=== PATIENT | female | born 1985 | race Caucasian/White ===

== ENCOUNTER 2021-10-21 13:59 | Observation (INO) | payer OTHER ==
[2021-10-21] MEDS ORDERED: MORPHINE SULFATE 4 MG/ML SYRINGE IVP STA (16:56)
[2021-10-21] MEDS ORDERED: SODIUM CHLORIDE 0.9% 1,000 ML IV STA ×2 (16:56→18:55)
[2021-10-21 18:02] LABS: Appearance,Urine Clear (Clear); Bilirubin,Urine Negative (Negative); Blood,Urine Negative (Negative); Color,Urine Light Yellow; Glucose,Urine (UA) Negative (Negative); Ketones,Urine Trace (Negative); Leukocyte Esterase,Urine Negative (Negative); Nitrite,Urine Negative (Negative); Protein,Urine Negative (Negative); Specific Gravity,Urine 1.007 (1.001-1.035); Urobilinogen,Urine <2.0 mg/dL (<2.0)
[2021-10-21 18:03] LABS: Basophils # (A) 0.1 k/uL (0-0.2); Basophils % (A) 0 %; Eosinophils # (A) 0.2 k/uL (0-0.7); Eosinophils % (A) 1 %; HCT 44.4 % (34.0-46.0); HGB 14.7 gm/dL (11.4-16.0); Lymphocytes # (A) 1.6 k/uL (1.0-4.8); Lymphocytes % (A) 9 %; MCH 31.8 pg (25.0-35.0); MCHC 33.1 g/dL (31.0-37.0); Mean Platelet Volume 8.7; Monocytes # (A) 0.8 k/uL (0-1.0); Monocytes % (A) 4 %; Neutrophils % (A) 85 %; Platelet Count 178 k/uL (150-450); RBC 4.62 m/uL (3.80-5.40); RDW 12.8 % (11.5-15.5); WBC 18.8 k/uL (3.8-10.6)
[2021-10-21] MEDS: ONDANSETRON 4 MG/2 ML VIAL IVP STA (18:08)
[2021-10-21 18:10] LABS: HCG,Qualitative Serum Not Detected
[2021-10-21 18:11] LABS: ALT 27 U/L (4-34); AST 17 U/L (14-36); African American GFR (CKD) >90 (>60 ml/min/1.73 sqM); Albumin 4.9 g/dL (3.5-5.0); Alkaline Phosphatase 87 U/L (38-126); Amylase 44 U/L (30-110); Anion Gap 12 mmol/L; Blood Urea Nitrogen 9 mg/dL (7-17); Calcium 9.6 mg/dL (8.4-10.2); Carbon Dioxide 23 mmol/L (22-30); Chloride 102 mmol/L (98-107); Glucose 196 mg/dL (74-99); Lipase 68 U/L (23-300); Non-African American GFR(CKD) >90 (>60 ml/min/1.73 sqM); Potassium 3.9 mmol/L (3.5-5.1); Sodium 137 mmol/L (137-145); Total Bilirubin 0.9 mg/dL (0.2-1.3); Total Protein 7.8 g/dL (6.3-8.2)
[2021-10-21 18:14] LABS: INR 0.9 (<1.2); Partial Thromboplastin Time 22.6 sec (22.0-30.0); Prothrombin Time 9.9 sec (9.0-12.0)
--- NOTE | 2021-10-21 18:42 | CT ---
EXAMINATION TYPE: CT abdomen pelvis w con DATE OF EXAM: 10/21/2021 COMPARISON: None available HISTORY: epigastric pain CT DLP: 1792.1 mGycm. Automated Exposure Control for Dose Reduction was Utilized. TECHNIQUE: Multiple contiguous axial CT images of the abdomen and pelvis were obtained from the lung bases through the pubic symphysis with IV Contrast, patient injected with 100 mL of Isovue 300. 2-D s agittal and coronal reformatted images were obtained. FINDINGS: Lung bases are clear. Liver, spleen, pancreas, and bilateral adrenal glands have an unremarkable enhanced appearance. Gallbladder is present. No definite intrahepatic or extrahepatic biliary ductal dilatation. Kidneys are symmetric in size without hydronephrosis. No renal or ureteral calculi. Urinary bladder a ppears unremarkable. Uterus is present. No adnexal masses. Visualized bowel is of normal caliber without evidence of obstruction. Appendix is moderately dilated with appendiceal wall thickening and periappendiceal inflammation, as well as intraluminal appendico liths, the largest measuring up to 7 mm. No free air. Abdominal aorta is of normal caliber. No intra-abdominal or retroperitoneal lymphadenopathy. Subcutan eous soft tissues appear unremarkable. Osseous structures appear intact. Mild multilevel degenerative changes most pronounced at the level of L4-5. IMPRESSION: Findings consistent with moderate acute appendicitis with intraluminal appendicoliths. No associated free air or abscess formation.
[2021-10-21] MEDS ORDERED: MORPHINE SULFATE 4 MG/ML SYRINGE IVP PRN (18:55)
[2021-10-21] MEDS ORDERED: ONDANSETRON 4 MG/2 ML VIAL IVP PRN (18:56)
[2021-10-21] MEDS ORDERED: NALOXONE 0.4 MG/ML 1 ML VIAL IV PRN (19:00)
--- NOTE | 2021-10-21 19:00 | ED ---
General Adult HPI - General Chief complaint: Abdominal Pain Stated complaint: Abd pain Time Seen by Provider: 10/21/21 16:43 Source: patient, RN notes reviewed, old records reviewed Mode of arrival: ambulatory Limitations: no limitations - History of Present Illness Initial comments: Patient is a 36-year-old female with past medical history remarkable for wof-cmpsoim-kngogqgsu type 2 diabetes who presents emergency Department complaining of abdominal pain for the last 2 days. Endorses right lower quadrant abdominal pain. Describes it as sharp, squishing sensation. Endorses some mild nausea with it. Denies any change in bowel movements. Denies any vaginal discharge or bleeding. Denies being . Denies any dysuria or hematuria. Denies fevers or sick contacts. Denies any history of abdominal surgeries. Presents for further evaluation of a concern for her abdominal pain. States her sugars are typically in the 100s. His no other acute complaints at this time. - Related Data Home Medications Medication Instructions Recorded Confirmed Glipizide (Unknown Dose) 1 tab PO DIRECTED 10/21/21 10/21/21 Metformin (Unknown Dose) 1 tab PO W/LUNCH 10/21/21 10/21/21 Pregabalin [Lyrica] 150 mg PO BID 10/21/21 10/21/21 Njc-Zwyz-Qkfci Acid 1 cap PO DAILY 10/21/21 10/21/21 [-U Capsule (formulary)] Allergies Allergy/AdvReac Type Severity Reaction Status Date / Time No Known Allergies Allergy Verified 10/21/21 19:00 Review of Systems ROS Statement: Those systems with pertinent positive or pertinent negative responses have been documented in the HPI. Review of Systems: CONST: Denies fever EYES: Denies blurry vision ENT: Denies nasal congestion C/V: Denies Chest pain RESP: Denies shortness of breath GI: Endorses abdominal pain : Denies dysuria SKIN: Denies rash. MSK: Denies joint pain. NEURO: Denies headache ROS Other: All systems not noted in ROS Statement are negative. Past Medical History Past Medical History: Diabetes Mellitus, Hyperlipidemia History of Any Multi-Drug Resistant Organisms: None Reported Past Surgical History: No Surgical Hx Reported Past Psychological History: No Psychological Hx Reported Smoking Status: Current every day smoker Past Alcohol Use History: Rare Past Drug Use History: None Reported General Exam - General Exam Comments Initial Comments: General: Appears in mild distress secondary to abdominal discomfort. HEAD: Normal with no signs of head trauma. EYES: PERRLA, EOMI, conjunctiva normal, no discharge. ENT: Hearing grossly intact, normal oropharynx. RESPIRATORY: Clear breath sounds bilaterally. No wheezes, rales, or rhonchi. C/V: Regular rate and rhythm. S1 and S2 auscultated, no edema, peripheral pulses 2+ and intact throughout ABD: Abdomen soft, nondistended. McBurney's point is positive. Tenderness to palpation in the right lower quadrant. Some mild right flank tenderness to palpation as well. No guarding. No. She no signs per no rebound tenderness. EXT: Normal range of motion, no obvious deformity SKIN: No rashes or lesions observed on exposed skin. NEURO: Alert and oriented 4. Limitations: no limitations Course Vital Signs 10/21/21 15:59 Temperature 98.7 F Pulse Rate 89 Respiratory 16 Rate Blood Pressure 120/75 O2 Sat by Pulse 98 Oximetry Medical Decision Making - Medical Decision Making Based on the patient's presentation and physical exam, I am concerned for acute intra-abdominal process for the patient. Cannot rule out acute appendicitis. Also on the differential, a as well as nephrolithiasis. We'll obtain abdominal laboratory studies, as well as CT and pelvis and percent of the kidneys and bladder. She was in agreement this plan. We'll symptomatically be treated with a 1 L fluid bolus as well as antiemetics and analgesia. Laboratory studies are remarkable for leukocytosis of 18.8. Patient's primary care blood sugar is slightly elevated to 196. Patient is not . The remainder of the labs are unremarkable and within normal limits. Renal ultrasound shows no signs of hydronephrosis or nephrolithiasis. CT revealed acute appendicitis, simple. No signs of free air or abscess formation. There is an intraluminal appendicolith. I discussed the findings with the patient. I believe she should be admitted and placed on IV antibiotics. Likely will require surgery. She was in agreement this plan. She'll be continued on maintenance IV fluids as well as as needed pain medications and antiemetics. I spoke with the surgeon on-call, Dr. Bhardwaj who accepted the patient. She requested that the patient be started on Zosyn has her choice antibiotics, which is done. Patient will be made nothing by mouth after midnight. I ordered a type and screen for tomorrow. At Dr. Bhardwaj's request, we will obtain a consult to medicine team, Dr. Pool who is covering for the patient's PCP Dr. Lux to manage her diabetes. I spoke with him over the phone and he was in agreement this plan. - Lab Data Result diagrams: 10/21/21 17:24 10/21/21 17:24 Lab Results 10/21/21 10/21/21 10/21/21 Range/Units 17:24 17:24 17:24 WBC 18.8 H (3.8-10.6) k/uL RBC 4.62 (3.80-5.40) m/uL Hgb 14.7 (11.4-16.0) gm/dL Hct 44.4 (34.0-46.0) % MCV 96.0 (80.0-100.0) fL MCH 31.8 (25.0-35.0) pg MCHC 33.1 (31.0-37.0) g/dL RDW 12.8 (11.5-15.5) % Plt Count 178 (150-450) k/uL MPV 8.7 Neutrophils % 85 % Lymphocytes % 9 % Monocytes % 4 % Eosinophils % 1 % Basophils % 0 % Neutrophils # 16.0 H (1.3-7.7) k/uL Lymphocytes # 1.6 (1.0-4.8) k/uL Monocytes # 0.8 (0-1.0) k/uL Eosinophils # 0.2 (0-0.7) k/uL Basophils # 0.1 (0-0.2) k/uL PT 9.9 (9.0-12.0) sec INR 0.9 (<1.2) APTT 22.6 (22.0-30.0) sec Sodium (137-145) mmol/L Potassium (3.5-5.1) mmol/L Chloride (98-107) mmol/L Carbon Dioxide (22-30) mmol/L Anion Gap mmol/L BUN (7-17) mg/dL Creatinine (0.52-1.04) mg/dL Est GFR (CKD-EPI)AfAm (>60 ml/min/1.73 sqM) Est GFR (CKD-EPI)NonAf (>60 ml/min/1.73 sqM) Glucose (74-99) mg/dL Calcium (8.4-10.2) mg/dL Total Bilirubin (0.2-1.3) mg/dL AST (14-36) U/L ALT (4-34) U/L Alkaline Phosphatase (38-126) U/L Total Protein (6.3-8.2) g/dL Albumin (3.5-5.0) g/dL Amylase (30-110) U/L Lipase (23-300) U/L HCG, Qual Urine Color Light Yellow Urine Appearance Clear (Clear) Urine pH 5.0 (5.0-8.0) Ur Specific [place] 1.007 (1.001-1.035) Urine Protein Negative (Negative) Urine Glucose (UA) Negative (Negative) Urine Ketones Trace H (Negative) Urine Blood Negative (Negative) Urine Nitrite Negative (Negative) Urine Bilirubin Negative (Negative) Urine Urobilinogen <2.0 (<2.0) mg/dL Ur Leukocyte Esterase Negative (Negative) 10/21/21 Range/Units 17:24 WBC (3.8-10.6) k/uL RBC (3.80-5.40) m/uL Hgb (11.4-16.0) gm/dL Hct (34.0-46.0) % MCV (80.0-100.0) fL MCH (25.0-35.0) pg MCHC (31.0-37.0) g/dL RDW (11.5-15.5) % Plt Count (150-450) k/uL MPV Neutrophils % % Lymphocytes % % Monocytes % % Eosinophils % % Basophils % % Neutrophils # (1.3-7.7) k/uL Lymphocytes # (1.0-4.8) k/uL Monocytes # (0-1.0) k/uL Eosinophils # (0-0.7) k/uL Basophils # (0-0.2) k/uL PT (9.0-12.0) sec INR (<1.2) APTT (22.0-30.0) sec Sodium 137 (137-145) mmol/L Potassium 3.9 (3.5-5.1) mmol/L Chloride 102 (98-107) mmol/L Carbon Dioxide 23 (22-30) mmol/L Anion Gap 12 mmol/L BUN 9 (7-17) mg/dL Creatinine 0.53 (0.52-1.04) mg/dL Est GFR (CKD-EPI)AfAm >90 (>60 ml/min/1.73 sqM) Est GFR (CKD-EPI)NonAf >90 (>60 ml/min/1.73 sqM) Glucose 196 H (74-99) mg/dL Calcium 9.6 (8.4-10.2) mg/dL Total Bilirubin 0.9 (0.2-1.3) mg/dL AST 17 (14-36) U/L ALT 27 (4-34) U/L Alkaline Phosphatase 87 (38-126) U/L Total Protein 7.8 (6.3-8.2) g/dL Albumin 4.9 (3.5-5.0) g/dL Amylase 44 (30-110) U/L Lipase 68 (23-300) U/L HCG, Qual Not Detected Urine Color Urine Appearance (Clear) Urine pH (5.0-8.0) Ur Specific [place] (1.001-1.035) Urine Protein (Negative) Urine Glucose (UA) (Negative) Urine Ketones (Negative) Urine Blood (Negative) Urine Nitrite (Negative) Urine Bilirubin (Negative) Urine Urobilinogen (<2.0) mg/dL Ur Leukocyte Esterase (Negative) Disposition Clinical Impression: Acute appendicitis Disposition: ADMITTED IP TO THIS [facility] Condition: Stable Referrals: Elda Lux MD [Primary Care Provider] - 1-2 days Time of Disposition: 18:55
--- NOTE | 2021-10-21 19:11 | US ---
EXAMINATION TYPE: US renals and bladder DATE OF EXAM: 10/21/2021 COMPARISON: CT Today 10/21/21 CLINICAL HISTORY: right flank pain. eval for hydronephrosis/stone. Right flank pain. EXAM MEASUREMENTS: Right Kidney: 11.5 x 6.7 x 5.1 cm Left Kidney: 11.9 x 5.3 x 5.8 cm Right Kidney: No hydronephrosis or masses seen Left Kidney: Indistinct, isoechoic area seen that could resemble normal tissue/column of Brandon versu s other: 2.5 x 2.1 x 2.5 cm. Bladder: Not fully distended, limited evaluation. Bilateral Jets seen: Yes IMPRESSION: No evidence of renal mass or obstruction. There are bilateral ureteral jets.
[2021-10-21] MEDS: PIPERACILLIN-TAZOBACTAM 3.375 GM in SODIUM CHLORIDE 0.9% 100 ML IVPB SCH (21:56)
[2021-10-22] MEDS: PIPERACILLIN-TAZOBACTAM 3.375 GM in SODIUM CHLORIDE 0.9% 100 ML IVPB SCH ×3 (04:11→18:14)
--- NOTE | 2021-10-22 07:25 | P.GSHP ---
History of Present Illness H&P Date: 10/21/21 CHIEF COMPLAINT: Right lower quadrant abdominal pain with appendicitis for over 1 day. HISTORY OF PRESENT ILLNESS: The patient is a 36-year-old female who presents with 1 day history of perium bilical with right lower quadrant abdominal pain that is crampy dull ache in nature. No reports of prior abdominal pain. She states the intensity of the pain is moderate. Her presented with CT abdomen and pelvis consistent with dilated appendix suspicious for appendicitis hence general surgery admission. PAST MEDICAL HISTORY: See list and reviewed PAST SURGICAL HISTORY: See list and reviewed CURRENT MEDICATIONS: See list and reviewed ALLERGIES: See list and reviewed SOCIAL HISTORY: See list and reviewed FAMILY HISTORY: See list and reviewed REVIEW OF ORGAN SYSTEMS: CONSTITUTIONAL: Present fever, no chills. Denies recent weight loss. BMI 36.0, morbidly obese. HEENT: Denies any trouble with vision, hearing or nosebleeds. No difficulty swallowing. LYMPHATIC: The patient denies any lumps and bumps around the neck. ENDOCRINE: Denies any thyroid disorders. Denies any blood sugar glucose intolerance. RESPIRATORY: Denies shortness of breath including chronic cough. Has tobacco abuse disorder. CARDIOVASCULAR: Denies history of chest pain with exertion. GASTROINTESTINAL: Denies regurgitation of bile at night as well as intermittent nausea. No blood in stools. GENITOURINARY: Denies any blood in urine or increased urinary frequency. MUSCULOSKELETAL: Denies current joint arthritis. NEUROLOGIC: Denies any numbness or tingling along the distal extremities. No seizure disorders or headaches. PSYCHIATRIC: Denies any depression or suicidal ideation. HEMATOLOGIC: Denies any abnormal bleeding or bruising. PHYSICAL EXAMINATION: GENERAL: A 14-year-old female in no acute distress. Pleasant. HEENT: No sclera icterus. Extraocular movements grossly intact. Moist buccal mucosa. Head is atraumatic, normocephalic. Hears conversational speech. No nasal drainage. NECK: Supple without lymphadenopathy. No JV distention. CHEST: Non-labored respirations and equal bilateral excursions. CARDIOVASCULAR: Regular rate and rhythm. Palpable 2+ radial pulses. ABDOMEN: Soft, tender at the right lower quadrant without guarding. MUSCULOSKELETAL: No clubbing, cyanosis or edema. NEUROLOGIC: No focal or lateralizing signs. PSYCH: Appropriate affect. Alert and oriented to person, place and time. SKIN: Well perfused. Good skin turgor. LABS: Reviewed. White blood cell count elevated over 18,000. STUDIES: CT of the abdomen and pelvis reviewed with findings consistent with appendicitis without free air or bowel obstruction. This is my independent interpretation. REPORT: CT of the abdomen and pelvis report with intraluminal appendicolith and appendicitis. ASSESSMENT: 1. Right lower quadrant pain. 2. Appendicitis 3. Leukocytosis PLAN: 1. I have discussed benefits and risks of robotic appendectomy. 2. Bilateral SCDs. 3. Antibiotics intravenous to address moderate leukocytosis. 4. Tobacco cessation counseling described. 5. Patient elevator risk for complications due to tobacco abuse disorder, morbid obesity, diabetes type 2 Past Medical History Past Medical History: Diabetes Mellitus, Hyperlipidemia History of Any Multi-Drug Resistant Organisms: None Reported Past Surgical History: No Surgical Hx Reported Past Psychological History: No Psychological Hx Reported Smoking Status: Current every day smoker Past Alcohol Use History: Rare Past Drug Use History: None Reported Medications and Allergies Home Medications Medication Instructions Recorded Confirmed Type Atorvastatin [Lipitor] 40 mg PO DAILY 10/21/21 10/21/21 History Loratadine [Claritin] 10 mg PO DAILY 10/21/21 10/21/21 History Pregabalin [Lyrica] 150 mg PO BID 10/21/21 10/21/21 History Zlf-Zfww-Fepsx Acid 1 cap PO HS 10/21/21 10/21/21 History [-U Capsule (formulary)] glipiZIDE [Glucotrol] 10 mg PO BID 10/21/21 10/21/21 History metFORMIN HCL [Glucophage] 1,000 mg PO W/SUPPER 10/21/21 10/21/21 History Acetaminophen Tab [Tylenol Tab] 1,000 mg PO Q6HR PRN #30 tablet 10/22/21 Rx Ibuprofen [Motrin] 600 mg PO Q8HR PRN #30 tab 10/22/21 Rx Simethicone [Gas-X] 125 mg PO AC-TID PRN #20 capsule 10/22/21 Rx Allergies Allergy/AdvReac Type Severity Reaction Status Date / Time No Known Allergies Allergy Verified 10/21/21 19:00 Surgical - Exam Vital Signs Temp Pulse Resp BP Pulse Ox 98.7 F 89 16 120/75 98 10/21/21 15:59 10/21/21 15:59 10/21/21 15:59 10/21/21 15:59 10/21/21 15:59 Results - Labs 10/23/21 07:20 10/22/21 05:53 Abnormal Lab Results - Last 24 Hours (Table) 10/21/21 10/21/21 10/21/21 Range/Units 17:24 17:24 17:24 WBC 18.8 H (3.8-10.6) k/uL Neutrophils # 16.0 H (1.3-7.7) k/uL Glucose 196 H (74-99) mg/dL Urine Ketones Trace H (Negative) Diabetes panel 10/21/21 Range/Units 17:24 Sodium 137 (137-145) mmol/L Potassium 3.9 (3.5-5.1) mmol/L Chloride 102 (98-107) mmol/L Carbon Dioxide 23 (22-30) mmol/L BUN 9 (7-17) mg/dL Creatinine 0.53 (0.52-1.04) mg/dL Glucose 196 H (74-99) mg/dL Calcium 9.6 (8.4-10.2) mg/dL AST 17 (14-36) U/L ALT 27 (4-34) U/L Alkaline Phosphatase 87 (38-126) U/L Total Protein 7.8 (6.3-8.2) g/dL Albumin 4.9 (3.5-5.0) g/dL Calcium panel 10/21/21 Range/Units 17:24 Calcium 9.6 (8.4-10.2) mg/dL Albumin 4.9 (3.5-5.0) g/dL Pituitary panel 10/21/21 Range/Units 17:24 Sodium 137 (137-145) mmol/L Potassium 3.9 (3.5-5.1) mmol/L Chloride 102 (98-107) mmol/L Carbon Dioxide 23 (22-30) mmol/L BUN 9 (7-17) mg/dL Creatinine 0.53 (0.52-1.04) mg/dL Glucose 196 H (74-99) mg/dL Calcium 9.6 (8.4-10.2) mg/dL Adrenal panel 10/21/21 Range/Units 17:24 Sodium 137 (137-145) mmol/L Potassium 3.9 (3.5-5.1) mmol/L Chloride 102 (98-107) mmol/L Carbon Dioxide 23 (22-30) mmol/L BUN 9 (7-17) mg/dL Creatinine 0.53 (0.52-1.04) mg/dL Glucose 196 H (74-99) mg/dL Calcium 9.6 (8.4-10.2) mg/dL Total Bilirubin 0.9 (0.2-1.3) mg/dL AST 17 (14-36) U/L ALT 27 (4-34) U/L Alkaline Phosphatase 87 (38-126) U/L Total Protein 7.8 (6.3-8.2) g/dL Albumin 4.9 (3.5-5.0) g/dL
[2021-10-22 09:00] LABS: Basophils # (A) 0.05 X 10*3/uL (0.00-0.10); Basophils % (A) 0.3 %; Eosinophils # (A) 0.26 X 10*3/uL (0.04-0.35); Eosinophils % (A) 1.8 %; HCT 36.6 % (37.2-46.3); Immature Grans, Automated 0.4 %; Lymphocytes # (A) 2.52 X 10*3/uL (0.90-5.00); Lymphocytes % (A) 17.1 %; MCH 31.2 pg (27.0-32.0); MCHC 32.8 g/dL (32.0-37.0); MCV 95.1 fL (80.0-97.0); Mean Platelet Volume 11.7 fL (9.5-12.2); Monocytes % (A) 10.2 %; NRBC Per 100 WBC 0 /100 WBCS (0.0-0.0); Neutrophils # (A) 10.38 X 10*3/uL (1.80-7.70); Neutrophils % (A) 70.2 %; Platelet Count 146 X 10*3/uL (140-440); RBC 3.85 X 10*6/uL (4.10-5.20); RDW 12.8 % (11.5-14.5); WBC 14.77 X 10*3/uL (4.50-10.00)
[2021-10-22] MEDS: HEPARIN SODIUM,PORCINE/PF 5,000 UNIT/0.5 ML SYRINGE SQ SCH ×3 (09:17→22:02)
[2021-10-22] MEDS: KETOROLAC 15 MG/ML 1 ML VIAL IVP SCH ×3 (09:20→22:01)
[2021-10-22] MEDS: FAMOTIDINE 20 MG/2 ML VIAL IV SCH ×2 (09:22→22:02)
[2021-10-22 09:26] LABS: African American GFR (CKD) 136.9 (60.0-200.0); Anion Gap 10.1 mmol/L (10.00-18.00); BUN/Creat Ratio 14.39 Ratio (12.00-20.00); Blood Urea Nitrogen 8.8 mg/dL (9.0-27.0); Calcium 8.9 mg/dL (8.7-10.3); Carbon Dioxide 23.7 mmol/L (20.0-27.5); Non-African American GFR(CKD) 118.1 (60.0-200.0); Potassium 4.5 mmol/L (3.5-5.5)
[2021-10-22 09:27] LABS: Glucose,Whole Blood 266 mg/dL (75-99)
[2021-10-22] MEDS ORDERED: INSULIN ASPART (NovoLOG) 100 UNIT/ML VIAL SQ ONE ×2 (09:52→17:07)
[2021-10-22] MEDS: INSULIN ASPART (NovoLOG) 100 UNIT/ML VIAL SQ SCH ×5 (11:09→22:03)
--- NOTE | 2021-10-22 11:37 | P.CONS ---
History of Present Illness - History of Present Illness This is a pleasant 56 years old female with past medical history off Diabetes Mellitus, Hyperlipidemia She presents because of right lower quadrant abdominal pain of 2 days' duration with no nausea vomiting, she does not have diarrhea but looks normal bowel movement Denies chest pain or dyspnea. No headache or weakness or dizziness. She smokes about 5 cigarettes per day she was counseled and agrees to the nicotine patch. Occasional alcohol. No illicit drugs Vitals are stable Labs show leukocytosis at 18.8. Rest of CBC, INR, BMP, liver enzymes is unremarkable. Serum hCG is not detected. Urine analysis is normal CT of the abdomen and pelvis: Moderate appendicitis with intraluminal appendicolith. No free air or abscess. Renal ultrasound: No evidence of renal mass or obstruction. There are bilateral ureteral jets At home she was on glipizide, metformin Review of Systems CONSTITUTIONAL: No fever, no malaise, no fatigue. HEENT: No recent visual problems or hearing problems. Denied any sore throat. CARDIOVASCULAR: No orthopnea, PND, no palpitations, no syncope. PULMONARY: No shortness of breath, no cough, no hemoptysis. GASTROINTESTINAL: No diarrhea, no nausea, no vomiting. Normoactive bowel sounds. NEUROLOGICAL: No headaches, no weakness, no numbness. HEMATOLOGICAL: Denies any bleeding or petechiae. GENITOURINARY: Denies any burning micturition, frequency, or urgency. MUSCULOSKELETAL/RHEUMATOLOGICAL: Denies any joint pain, swelling, or any muscle pain. ENDOCRINE: Denies any polyuria or polydipsia. Past Medical History Past Medical History: Diabetes Mellitus, Hyperlipidemia History of Any Multi-Drug Resistant Organisms: None Reported Past Surgical History: No Surgical Hx Reported Past Psychological History: No Psychological Hx Reported Smoking Status: Current every day smoker Past Alcohol Use History: Rare Past Drug Use History: None Reported Medications and Allergies Home Medications Medication Instructions Recorded Confirmed Type Atorvastatin [Lipitor] 40 mg PO DAILY 10/21/21 10/21/21 History Loratadine [Claritin] 10 mg PO DAILY 10/21/21 10/21/21 History Pregabalin [Lyrica] 150 mg PO BID 10/21/21 10/21/21 History Uai-Sxqq-Qjsfy Acid 1 cap PO HS 10/21/21 10/21/21 History [-U Capsule (formulary)] glipiZIDE [Glucotrol] 10 mg PO BID 10/21/21 10/21/21 History metFORMIN HCL [Glucophage] 1,000 mg PO W/SUPPER 10/21/21 10/21/21 History Allergies Allergy/AdvReac Type Severity Reaction Status Date / Time No Known Allergies Allergy Verified 10/21/21 19:00 Physical Exam Vitals: Vital Signs Temp Pulse Resp BP Pulse Ox 10/22/21 07:48 97.9 F 79 14 114/68 96 10/22/21 01:58 98.6 F 97 18 117/76 97 10/21/21 23:00 98.6 F 92 18 123/89 97 10/21/21 15:59 98.7 F 89 16 120/75 98 Intake and Output 10/21/21 10/22/21 10/22/21 22:59 06:59 14:59 Other: Weight 104.326 kg GENERAL: The patient is alert and oriented x3, not in any acute distress. Well developed, well nourished. HEENT: Pupils are round and equally reacting to light. EOMI. No scleral icterus. No conjunctival pallor. Normocephalic, atraumatic. No pharyngeal erythema. No thyromegaly. CARDIOVASCULAR: S1 and S2 present. No murmurs, rubs, or gallops. PULMONARY: Chest is clear to auscultation, no wheezing or crackles. -ABDOMEN: Soft, RLQ tenderness, nondistended, normoactive bowel sounds. No palpable organomegaly. MUSCULOSKELETAL: No joint swelling or deformity. EXTREMITIES: No cyanosis, clubbing, or pedal edema. NEUROLOGICAL: Gross neurological examination did not reveal any focal deficits. SKIN: No rashes. No petechiae Results CBC & Chem 7: 10/22/21 05:53 10/22/21 05:53 Labs: Abnormal Lab Results - Last 24 Hours (Table) 10/21/21 10/21/21 10/21/21 Range/Units 17:24 17:24 17:24 WBC 18.8 H (3.8-10.6) k/uL Neutrophils # 16.0 H (1.3-7.7) k/uL Glucose 196 H (74-99) mg/dL Urine Ketones Trace H (Negative) Assessment and Plan Assessment: Acute appendicitis Diabetes mellitus, type II Hyperlipidemia Obesity with BMI 56 Plan: This is a pleasant 56 years old female who presents with acute appendicitis Continue with bowel rest, IV fluids and pain management Surgery team consult Continue with insulin sliding scale while keep holding metformin and glipizide for now Labs and medication were reviewed.. Continue same treatment. Continue with symptomatic treatment. Resume home medication. Monitor lytes and vitals. DVT and GI prophylaxis. Further recommendations depends on the clinical course of the patient DVT prophylaxis: Subcutaneous heparin GI Prophylaxis: Pepcid Prognosis is guarded Thank you for consulting us
[2021-10-22 12:27] LABS: Glucose,Whole Blood 241 mg/dL (75-99)
[2021-10-22 13:30] LABS: Glucose,Whole Blood 220 mg/dL (75-99)
[2021-10-22] MEDS ORDERED: IV FLUID CONTINUATION 1,000 ML IV ONE (16:43)
[2021-10-22] MEDS: ONDANSETRON 4 MG/2 ML VIAL IVP STA (16:53)
[2021-10-22] MEDS ORDERED: DEXAMETHASONE SOD PHOSPHATE 4 MG/ML 1 ML VIAL IV ONE (16:53)
[2021-10-22 17:01] LABS: Glucose,Whole Blood 221 mg/dL (75-99)
[2021-10-22] MEDS ORDERED: MIDAZOLAM 2 MG/2 ML VIAL IVP ONE (17:13)
[2021-10-22] MEDS ORDERED: MIDAZOLAM 2 MG/2 ML VIAL ONE (17:44)
[2021-10-22] MEDS ORDERED: ROCURONIUM 10 MG/ML (5 ML VIAL) IV ONE (17:44)
[2021-10-22] MEDS ORDERED: KETOROLAC 15 MG/ML 1 ML VIAL ONE (17:44)
[2021-10-22] MEDS ORDERED: GLYCOPYRROLATE 0.2 MG/ML 2 ML VIAL ONE (17:44)
[2021-10-22] MEDS ORDERED: SUCCINYLCHOLINE CHLORIDE 100 MG/5 ML SYR IV ONE (17:44)
[2021-10-22] MEDS ORDERED: fentaNYL (PF) 50 MCG/ML 2 ML AMP ONE (17:44)
[2021-10-22] MEDS ORDERED: LIDOCAINE 2% INJ 20 MG/ML (2 ML VIAL) ONE (17:44)
[2021-10-22] MEDS ORDERED: NEOSTIGMINE 1 MG/ML 10 ML VIAL ONE (17:44)
[2021-10-22] MEDS ORDERED: PROPOFOL 10 MG/ML 20 ML VIAL IV ONE (17:44)
[2021-10-22] MEDS ORDERED: IV FLUID CONTINUATION 900 ML IV ONE (17:49)
[2021-10-22] MEDS ORDERED: BUPIVACAIN-EPI 0.25%-1:200,000 30 ML VIAL SQ ONE (18:11)
[2021-10-22] MEDS ORDERED: ACETAMINOPHEN IV (For NPO) 1,000 MG in EMPTY BAG 1 BAG IVPB ONE (19:09)
--- NOTE | 2021-10-22 19:20 | P.OP ---
Date of Procedure: 10/22/21 Description of Procedure: SURGEON: NEYDA CONTRERAS MD Preoperative Diagnosis: 1. Acute appendicitis 2. Morbid obesity due to excess calories, BMI 36.0 3. Diabetes type 2, [id number] 4. Tobacco abuse disorder 5. Hyperlipidemia 6. Neuropathy Postoperative Diagnosis: 1. Acute appendicitis, retrocecal with periappendicitis 2. Morbid obesity due to excess calories, BMI 36.0 3. Diabetes type 2, [id number] 4. Tobacco abuse disorder 5. Hyperlipidemia 6. Neuropathy Procedure(s) Performed: 1. Robotic-assisted daVinci Xi laparoscopic appendectomy Anesthesia: GETA, local Estimated Blood Loss (ml): 10 Pathology: other (appendix) Condition: stable Disposition: floor Operative Findings: 1. Acute appendicitis without rupture with periappendicitis 2. Terminal ileum unremarkable 3. Cecum unremarkable 4. Moderate hepatomegaly 5. No inguinal hernias INDICATIONS: The patient is a 36-year-old female who presents with acute appendicitis. Benefits and risks, including infection, open surgery, and bleeding for additional surgery was discussed at length. Informed consent was obtained. All questions of the patient and family were answered. DESCRIPTION: The patient was transferred to the operating room and placed in supine position. The patient had previously voided. The abdomen was then prepped and draped in standard sterile fashion as Ioban was placed along the abdomen to minimize any contamination of skin floor. After a timeout protocol was performed, attention was then brought to the left upper quadrant whereby a 0 degree 5 mm laparoscopic trocar entry was performed. The abdominal cavity was entered and insufflated to 12 mmHg pressure, which was tolerated well. Diagnostic laparoscopy demonstrated no injury to bowel, viscera or mesentery. Next a robotic 8-mm trocar was placed along the left lower quadrant, 10-cm lateral to the midline. A 12 mm port was placed along the left upper quadrant and another 8-mm port left lateral abdominal wall. Ports were placed 8 cm apart from each other including 15-20 cm away from the target anatomy of the right pelvis. The patient was then placed in Trendelenburg position, at least 7 down and right side up at least 7. The robotic da Lashay XI system was primed and docked from the left side of the patient. Using atraumatic graspers and vessel sealer, the robotic system was docked and primed as described. Instruments were interchanged by the assistant professor of chemistry including graspers, robotic stapler and vessel sealer. Next, attention was brought to identify the cecum. A systematic view within the abdominal cavity was started with the small bowel which was unremarkable. The base of the cecum was unremarkable. No inguinal hernias were found. The appendix was dilated with periappendicitis without rupture. No perforation was identified. The appendix was dissected free from its surrounding tissues. Blue 45 mm robotic staple loads were fired along the base of the appendix. The staple line was hemostatic. Hemostasis was checked prior to undocking the robot. The robot was undocked. I re-scrubbed into the case. The specimen was removed from the abdominal cavity with an Endo Catch bag through the 12 mm trocar at the left upper quadrant. The port site was less than 8 mm in size. All instruments and pneumoperitoneum were evacuated from the abdominal cavity. Local anesthetic was infiltrated to all wounds for postop analgesia. All incisions were also cleansed with diluted hydrogen peroxide. The incisions were closed with 4-0 Monocryl. Exofin glue was applied to the rest of the skin incisions. The patient had tolerated the procedure well. The patient was extubated successfully. The patient was transferred to the postanesthesia care unit in stable condition.
[2021-10-22 19:31] LABS: Glucose,Whole Blood 233 mg/dL (75-99)
[2021-10-22] MEDS ORDERED: LACTATED RINGERS 1,000 ML IV ONE (19:47)
[2021-10-22 20:36] LABS: Glucose,Whole Blood 242 mg/dL (75-99)
[2021-10-23] MEDS: KETOROLAC 15 MG/ML 1 ML VIAL IVP SCH ×2 (00:35→05:09)
[2021-10-23 02:45] VITALS: RESP 16
[2021-10-23] MEDS: PIPERACILLIN-TAZOBACTAM 3.375 GM in SODIUM CHLORIDE 0.9% 100 ML IVPB SCH (05:09)
[2021-10-23 07:36] LABS: Glucose,Whole Blood 287 mg/dL (75-99)
[2021-10-23] MEDS: INSULIN ASPART (NovoLOG) 100 UNIT/ML VIAL SQ SCH (08:09)
[2021-10-23] MEDS: HEPARIN SODIUM,PORCINE/PF 5,000 UNIT/0.5 ML SYRINGE SQ SCH (08:09)
[2021-10-23] MEDS: FAMOTIDINE 20 MG/2 ML VIAL IV SCH (08:09)
[2021-10-23 08:38] VITALS: BP 135/75; PULSE 78; TEMP 98
[2021-10-23 10:28] LABS: Basophils # (A) 0.03 X 10*3/uL (0.00-0.10); Basophils % (A) 0.2 %; Eosinophils # (A) 0 X 10*3/uL (0.04-0.35); Eosinophils % (A) 0 %; HCT 33.8 % (37.2-46.3); Immature Grans, Automated 0.6 %; Lymphocytes # (A) 1.17 X 10*3/uL (0.90-5.00); Lymphocytes % (A) 8.7 %; MCHC 32.5 g/dL (32.0-37.0); MCV 95.2 fL (80.0-97.0); Mean Platelet Volume 12.1 fL (9.5-12.2); Monocytes # (A) 0.82 X 10*3/uL (0.20-1.00); Monocytes % (A) 6.1 %; NRBC Per 100 WBC 0 /100 WBCS (0.0-0.0); Neutrophils # (A) 11.33 X 10*3/uL (1.80-7.70); Neutrophils % (A) 84.4 %; Platelet Count 155 X 10*3/uL (140-440); RBC 3.55 X 10*6/uL (4.10-5.20); RDW 12.6 % (11.5-14.5); WBC 13.43 X 10*3/uL (4.50-10.00)
--- NOTE | 2021-10-30 11:02 | P.DS ---
Providers Date of admission: 10/21/21 19:00 Expected date of discharge: 10/23/21 Attending physician: Daya Dewey Consults: 10/21/21 18:59 Consult Physician Routine Consulting Provider: Skyler Pool Reason/Comments: medical management. DMII Do you want consulting provider notified?: Already Contacted Primary care physician: [facility] Course: Postoperative Diagnosis: 1. Acute appendicitis, retrocecal with periappendicitis 2. Morbid obesity due to excess calories, BMI 36.0 3. Diabetes type 2, [id number] 4. Tobacco abuse disorder 5. Hyperlipidemia 6. Neuropathy COURSE: The patient is a 36-year-old female who presents with 1 day history of periumbilical with right lower quadrant abdominal pain that is crampy dull ache in nature. No reports of prior abdominal pain. She states the intensity of the pain is moderate. Her presented with CT abdomen and pelvis consistent with dilated appendix suspicious for appendicitis hence general surgery admission. She underwent robotic appendectomy without complications. Patient was discharged after tolerating diet, pain controlled. Leukocytosis was resolving. Procedures: Procedure(s) Performed: 1. Robotic-assisted daVinci Xi laparoscopic appendectomy Anesthesia: GETA, local Estimated Blood Loss (ml): 10 Pathology: other (appendix) Condition: stable Disposition: floor Operative Findings: 1. Acute appendicitis without rupture with periappendicitis 2. Terminal ileum unremarkable 3. Cecum unremarkable 4. Moderate hepatomegaly 5. No inguinal hernias Patient Condition at Discharge: Stable Plan - Discharge Summary Discharge Rx Participant: No New Discharge Prescriptions: New Simethicone [Gas-X] 125 mg PO AC-TID PRN #20 capsule PRN Reason: Pain Ibuprofen [Motrin] 600 mg PO Q8HR PRN #30 tab PRN Reason: Pain Acetaminophen Tab [Tylenol Tab] 1,000 mg PO Q6HR PRN #30 tablet PRN Reason: Pain Continue Loratadine [Claritin] 10 mg PO DAILY glipiZIDE [Glucotrol] 10 mg PO BID Pregabalin [Lyrica] 150 mg PO BID [id number] Acid [-U Capsule (formulary)] 1 cap PO HS metFORMIN HCL [Glucophage] 1,000 mg PO W/SUPPER Atorvastatin [Lipitor] 40 mg PO DAILY Discharge Medication List Atorvastatin [Lipitor] 40 mg PO DAILY 10/21/21 [History] Loratadine [Claritin] 10 mg PO DAILY 10/21/21 [History] Pregabalin [Lyrica] 150 mg PO BID 10/21/21 [History] [id number]-[id number] Acid [-U Capsule (formulary)] 1 cap PO HS 10/21/21 [History] glipiZIDE [Glucotrol] 10 mg PO BID 10/21/21 [History] metFORMIN HCL [Glucophage] 1,000 mg PO W/SUPPER 10/21/21 [History] Acetaminophen Tab [Tylenol Tab] 1,000 mg PO Q6HR PRN #30 tablet 10/22/21 [Rx] Ibuprofen [Motrin] 600 mg PO Q8HR PRN #30 tab 10/22/21 [Rx] Simethicone [Gas-X] 125 mg PO AC-TID PRN #20 capsule 10/22/21 [Rx] Follow up Appointment(s)/Referral(s): Daya Dewey MD [STAFF PHYSICIAN] - 10/29/21 (Telehealth) Elda Lux MD [Primary Care Provider] - 1-2 days Patient Instructions/Handouts: How to Stop Smoking (DC), Appendicitis (GEN), Weight Management (ED), Laparoscopic Appendectomy (GEN) Activity/Diet/Wound Care/Special Instructions: No lifting over 10 pounds in 2 weeks until November 05. May shower. No bath tub soaks for two weeks until November 05. Diet as tolerated. Use Tylenol, simethicone and ibuprofen or Aleve scheduled for the next 24-48 hours for best pain relief. Use ice along incisions for today to prevent swelling. Discharge Disposition: HOME SELF-CARE
== END 2021-10-23 10:54 | disposition home or self-care (01) ==
LOC: EC 13:59 → SUPCPDRO 13:59 → 6NMEDSUR 19:00
PROVIDERS: ADMIT Surgery Plastic and Reconstructive Surgery; ATTEND Surgery Plastic and Reconstructive Surgery
DX: K35.80 Unspecified acute appendicitis (principal); E66.01 Morbid (severe) obesity due to excess calories; Z68.36 Body mass index [BMI] 36.0-36.9, adult; K38.1 Appendicular concretions; R16.0 Hepatomegaly, not elsewhere classified; E10.9 Type 1 diabetes mellitus without complications; F17.210 Nicotine dependence, cigarettes, uncomplicated; E78.5 Hyperlipidemia, unspecified; K40.90 Unilateral inguinal hernia, without obstruction or gangrene, not specified as recurrent; Z79.899 Other long term (current) drug therapy; Z79.84 Long term (current) use of oral hypoglycemic drugs; Z79.4 Long term (current) use of insulin; Z71.6 Tobacco abuse counseling
CPT/HCPCS: 44970; S2900; 36415; 74177; 76770; 80048; 80053; 81003; 81025; 82150; 83690; 84703; 85025; 85610; 85730; 86850; 86900; 86901; 88304; 96361; 96365; 96366; 96375; 96376; 99285

== ENCOUNTER → 2023-03-02 | Outpatient (CLI) | payer SELFPAY ==
--- NOTE | 2023-03-02 09:54 | US ---
EXAMINATION TYPE: US abdomen comp/pelvis limited DATE OF EXAM: 03/02/2023 COMPARISON: NONE CLINICAL INDICATION: Female, 37 years old with history of R10.30 LOWER ABDOMINAL PAIN, [id number] .3; Pain spotting EXAM MEASUREMENTS: Liver Length: 16.1 cm Gallbladder Wall: .3 cm CBD: .7 cm Spleen: 10.5 cm Right Kidney: 11.6 x 4.4 x 6.0 cm Left Kidney: 11.1 x 5.6 x 4.3 cm Pancreas: Obscured by bowel gas Liver: Increased attenuation Gallbladder: No stones seen CBD: wnl Spleen: wnl Right Kidney: wnl Left Kidney: wnl Upper IVC: wnl Abd Aorta: wnl Bladder: wnl Bilateral Jets Seen Yes IMPRESSION: 1. No evidence for acute process. 2. Hepatic steatosis.
--- NOTE | 2023-03-02 10:04 | US ---
EXAMINATION TYPE: US transvaginal DATE OF EXAM: 03/02/2023 COMPARISON: CT 10/21/2021 CLINICAL INDICATION: Female, 37 years old with history of R10.30 LOWER ABDOMINAL PAIN, [id number] .3; Spotting TECHNIQUE: Transvaginal (TV). EXAM MEASUREMENTS: Uterus: 7.5 x 3.7 x 4.3 cm Endometrial Stripe: .9 cm Right Ovary: 4.5 x 2.6 x 3.9 cm Left Ovary: 3.9 x 2.8 x 2.5 cm 1. Uterus: Anteverted wnl 2. Endometrium: wnl 3. Right Ovary: Hypoechoic area seen 2.4 x 2.4 x 2.7 cm which could represent involuting hemorrhagic follicle.. 4. Left Ovary: wnl 5. Bilateral Adnexa: wnl 6. Posterior cul-de-sac: wnl IMPRESSION: 1. No acute pelvic process. 2. Possible involuting hemorrhagic right ovarian follicle. Consider short-term follow-up in 6-8 week s to ensure resolution. 3. Endometrium within normal limits for thickness.
== END | disposition home or self-care (01) ==
LOC: RADUSWWP 09:00
PROVIDERS: ATTEND Family Medicine
DX: N92.3 Ovulation bleeding (principal); K76.0 Fatty (change of) liver, not elsewhere classified; R10.30 Lower abdominal pain, unspecified
CPT/HCPCS: 76700; 76830; 76857